=== PATIENT | female | born 1970 | race Caucasian/White ===

== ENCOUNTER 2022-12-28 11:15 | Outpatient (AMB) | payer OTHER, SELFPAY ==
--- NOTE | 2022-12-28 11:31 | A.SPINEOV_ITS ---
Intake Intake Visit Reasons: est pt lower back pain/leg cramps Intake Note: Ms. Mtz is here today c/o low back pain and leg cramps. 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 She is a patient who has had anterior cervical fusion as well as L4-5 minimally invasive lumbar fusion by Dr. Oviedo. The last surgery she had in her lumbar spine was a few years ago when she did fairly well after that. She did start to develop a little bit of discomfort in her legs with walking last year. She underwent an MRI and it showed mild to moderate stenosis at L2-3. We encouraged her just to continue with activity and continue to monitor things. Unfortunately over the last year so the symptoms have gotten progressively worse. Now when she is standing and walking for any length of time she is starting to get severe cramping and pain which forces her to sit down. It sounds to me like she is progressing with the stenosis. I would like to get a new lumbar MRI to evaluate things. We will coordinate this with the [facility] because she will need her shunt reprogrammed after the MRI. We will do the MRI at the [facility]. She will see us back after the MRI is completed. She is aware that she will need to bring her disc. Total amount of time spent in this visit was 20 minutes in discussion of symptoms, previous lumbar MRI imaging results and subsequent plan of care Byron Oviedo MD,PhD [facility] Orders: Orders MR lumbar spine wo con Today M48.061 - Spinal stenosis, lumbar region without neurogenic claudication Coding Level of Care Code Est Pt Level 3 (61324) Diagnoses Lumbar stenosis M48.061
== END 2022-12-28 12:02 | disposition home or self-care (01) ==
PROVIDERS: PCP Radiology Diagnostic Radiology; Visit Provider Physician Assistant
DX: M48.061 Spinal stenosis, lumbar region without neurogenic claudication (principal)
CPT/HCPCS: 99213

== ENCOUNTER → 2022-12-28 11:15 | Outpatient (BNVA) | payer OTHER, SELFPAY | PROVIDERS: PCP Radiology Diagnostic Radiology; Visit Provider Physician Assistant ==

== ENCOUNTER 2023-02-01 14:59 | Outpatient (AMB) | payer OTHER, SELFPAY ==
--- NOTE | 2023-02-01 15:45 | MHC.OFFVIS ---
Intake Intake Visit Reasons: F/u MRI Assessment & Plan Assessment & Plan (1) Lumbar stenosis: Code(s): M48.061 - Spinal stenosis, lumbar region without neurogenic claudication Plan Mrs Soares returns to the office today for evaluation. Please see my previous note but this patient had an L4-5 minimally invasive oblique lumbar interbody fusion done a few years ago with excellent success. She developed progressively did claudicating symptoms in her legs going down into her calves with cramping which goes away when she sits down. We did a follow-up MRI study just to evaluate some low-grade stenosis that we had seen after surgery a year ago or so. Unfortunately her new MRI done at the [facility] shows that she has developed severe stenosis at L2-3 and moderate to severe stenosis at L3-4. I reviewed the patient's imaging with her at length, and told her that I suspect Dr. Oviedo would recommend extension of fusion to both of these levels. I will speak with him and reviewed the situation and call her with the updated plan. Total amount of time spent in this visit was 20 minutes in discussion of symptoms, lumbar MRI imaging results and subsequent plan of care Byron Oviedo MD,PhD [facility] Coding Level of Care Code Est Pt Level 3 (36731) Diagnoses Lumbar stenosis M48.061
== END 2023-02-01 15:44 | disposition home or self-care (01) ==
PROVIDERS: PCP Radiology Diagnostic Radiology; Visit Provider Physician Assistant
DX: M48.061 Spinal stenosis, lumbar region without neurogenic claudication (principal)
CPT/HCPCS: 99213

== ENCOUNTER → 2023-02-01 14:59 | Outpatient (BNVA) | payer OTHER, SELFPAY | PROVIDERS: PCP Radiology Diagnostic Radiology; Visit Provider Physician Assistant ==

== ENCOUNTER 2023-08-22 10:57 | Day surgery (SDC) | payer OTHER, SELFPAY ==
[2023-04-18 12:31] VITALS: BP 136/85; PULSE 87; RESP 18; O2SAT 97; BMI 34.2
--- NOTE | 2023-04-18 13:01 | P.CONAN_ITS ---
HPI - Anesthesia Eval Consult details Narrative: rescheduled? 52yo F for L2-3,L3-4 Unilateral approach for bilateral decompression, 05/02/23 No recent illness. No CP/SOB with walking on flat surface. Activity limited to pain/OA SLE. Dx ~2009. Previously on plaquinel, but stopped d/t opthalmic side effects. No rx for two years. Thyroid. On levothyroxine. Followed by PCP GERD. Controlled with PPI. [employer] shunt. Intracranial htn. Followed by [facility] neuro. Last seen 01/23/23. Settings on paper record. Pt requests sparing use of opiates as much as possible. PMFSH Active Problems Active Problems: All Active Problems (Updated 04/18/23 @ 12:20 by Nikole Helm RN) Lumbar stenosis (Acute) Past Medical History Medical History (Updated 05/01/23 @ 06:57 by Maria Eugenia Lawton RN) Pseudotumor cerebri History of trigger finger Hx of septic shock Arthritis Antiphospholipid antibody positive Diarrhea Hiatal hernia Numbness HTN (hypertension) Tendinopathy of right gluteus medius Grief reaction Urinary frequency Colitis Elevated glucose Sensorineural hearing loss Raynaud disease Partial hamstring tear Postmenopausal Nail discoloration Labral tear of right hip joint Fluttering sensation of heart Fall Systemic lupus erythematosus Cervical spinal cord compression Vulvar atrophy Benign intracranial hypertension Greater trochanteric bursitis of right hip Cervical radiculopathy Chondromalacia of right patella Shoulder pain Presbyopia Myopia Asthenopia of both eyes Antiphospholipid antibody syndrome Incontinence in female Back pain Dry eye syndrome Thoracic spondylosis Peripheral neuropathy Migraine Depression Polyarthritis History of headache GERD (gastroesophageal reflux disease) Tinnitus Herpes zoster Papilledema Osteopenia Hx of abnormal cervical Pap smear History of nicotine dependence Iron deficiency anemia History of compression fracture of spine Prediabetes Obesity Mild cervical dysplasia Thyroid disease Generalized hyperhidrosis Epigastric pain Adjustment disorder with mixed anxiety and depressed mood Family History Family history of problems with anesthesia: Yes (Mom - ponv) Surgical History Surgical History (Updated 04/18/23 @ 12:21 by Nikole Helm RN) History of surgery on arm Hx of hand surgery Hx of section Hx of cervical spine surgery H/O colonoscopy [employer] (ventriculoperitoneal) shunt status History of Problems with Anesthesia: Yes (PONV) Social History Social History Are you a primary acute care physical therapist to a significant other at home: Yes (mother) Do you presently have visiting nurse or other home services: Yes (nursing) Patient Tobacco Use Status: Former Tobacco user Tobacco use type: Cigarette Use of substances other than those prescribed or required for medical reasons: No Have you been hit, kicked, punched, or otherwise hurt by someone within the past year? If so, by whom?: No Advance Directives: No Advance Directives Information Provided: No Advance Directives on File: No Recently lost weight without trying: No Eating poorly because of decreased appetite: No Nutrition Risks: No Nutritional Risk Patient : No : No Poor oral hygiene: No Meds Allergies Allergy/AdvReac Type Severity Reaction Status Date / Time codeine Allergy Rash Verified 04/18/23 12:22 hydrocodone [From Vicodin] Allergy Hallucinati Verified 04/18/23 12:22 ons hydromorphone [From Dilaudid] Allergy Swelling Verified 04/18/23 12:22 morphine Allergy Rash Verified 04/18/23 12:22 Home Medications Medication Instructions Recorded Confirmed Last Taken Type acetaminophen 500 mg tablet 1,000 mg PO Q8H PRN mild pain 04/18/23 04/18/23 Unknown History amlodipine 5 mg tablet 5 mg PO DAILY 04/18/23 04/18/23 Unknown History calcium carbonate 600 mg-vitamin 1 tab PO DAILY 04/18/23 04/18/23 Unknown History D3 5 mcg (200 unit) tablet duloxetine 60 mg capsule,delayed 60 mg PO DAILY 04/18/23 04/18/23 Unknown Hist ory release fluticasone propionate 50 1 spray intranasal DAILY PRN 04/18/23 04/18/23 Unknown History mcg/actuation nasal Allergy Symptoms spray,suspension levothyroxine 100 mcg tablet 100 mcg PO DAILY 04/18/23 04/18/23 Unknown History minocycline 50 mg capsule 50 mg PO DAILY 04/18/23 04/18/23 Unknown History omeprazole 20 mg capsule,delayed 40 mg PO DAILY 04/18/23 04/18/23 Unknown History release Exam Height,Weight and Vital Signs: Height 5 ft 4 in Weight 90.265 kg Last Vital Signs Pulse 87 04/18/23 12:31 Resp 18 04/18/23 12:31 BP 136/85 04/18/23 12:31 Pulse Ox 97 04/18/23 12:31 O2 Del Method Room Air 04/18/23 12:31 Pertinent Lab Results Pertinent Lab Results: CBC and BMP 08/2022 from outside facility WNL. Narrative Narrative: EKG 06/2022 NSR @ 85 Airway TM Dist: >3cm Neck ROM: Limited Loose/Missing/Broken Teeth: No Heart: RRR Lungs: CTAB Assessment and Plan Assessment Anesthesia Assessment: Anesthesia Plan Discussed and PAT Visit Final Anesthetic Review Family History of Problems with Anesthesia: Yes (Mom - ponv) History of Problems with Anesthesia: Yes (PONV)
[2023-08-07 09:24] VITALS: BMI 33.6
--- NOTE | 2023-08-09 11:00 | HO.ANESPROP2 ---
Documented by User: Antoinette Killian NP 08/09/23 11:04 HPI - Anesthesia Eval Consult details Narrative: 53yo F for L2-3,L3-4 Unilateral approach for bilateral decompression, 08/22/23 Stable at 07/2023 PCP visit From 04/2023 PAT: No recent illness. No CP/SOB with walking on flat surface. Activity limited to pain/OA SLE. Dx ~2009. Previously on plaquinel, but stopped d/t opthalmic side effects. No rx for two years. Thyroid. On levothyroxine. Followed by PCP GERD. Controlled with PPI. [employer] shunt. Intracranial htn. Followed by [facility] neuro. Last seen 01/23/23, stable. Settings on paper record. Pt requests sparing use of opiates as much as possible. PMFSH Active Problems Active Problems: All Active Problems Lumbar stenosis (Acute) Past Medical History Medical History Pseudotumor cerebri History of trigger finger Hx of septic shock Arthritis Antiphospholipid antibody positive Diarrhea Hiatal hernia Numbness HTN (hypertension) Tendinopathy of right gluteus medius Grief reaction Urinary frequency Colitis Elevated glucose Sensorineural hearing loss Raynaud disease Partial hamstring tear Postmenopausal Nail discoloration Labral tear of right hip joint Fluttering sensation of heart Fall Systemic lupus erythematosus Cervical spinal cord compression Vulvar atrophy Benign intracranial hypertension Greater trochanteric bursitis of right hip Cervical radiculopathy Chondromalacia of right patella Shoulder pain Presbyopia Myopia Asthenopia of both eyes Antiphospholipid antibody syndrome Incontinence in female Back pain Dry eye syndrome Thoracic spondylosis Peripheral neuropathy Migraine Depression Polyarthritis History of headache GERD (gastroesophageal reflux disease) Tinnitus Herpes zoster Papilledema Osteopenia Hx of abnormal cervical Pap smear History of nicotine dependence Iron deficiency anemia History of compression fracture of spine Prediabetes Obesity Mild cervical dysplasia Thyroid disease Generalized hyperhidrosis Epigastric pain Adjustment disorder with mixed anxiety and depressed mood Family History Family history of problems with anesthesia: Yes (Mom - ponv) Surgical History Surgical History History of surgery on arm Hx of hand surgery Hx of section Hx of cervical spine surgery H/O colonoscopy [employer] (ventriculoperitoneal) shunt status History of Problems with Anesthesia: Yes (PONV) Social History Social History Are you a primary nurse care manager to a significant other at home: Yes (to her Mother) Do you presently have visiting nurse or other home services: Yes (nursing) Patient Tobacco Use Status: Former Tobacco user Tobacco use type: Cigarette Use of substances other than those prescribed or required for medical reasons: No Have you been hit, kicked, punched, or otherwise hurt by someone within the past year? If so, by whom?: No Are you DNR?: No Advance Directives: No Advance Directives Information Provided: Yes Advance Directives on File: No Recently lost weight without trying: No Eating poorly because of decreased appetite: No Nutrition Risks: No Nutritional Risk Patient : No : No Poor oral hygiene: No Meds Allergies Allergy/AdvReac Type Severity Reaction Status Date / Time codeine Allergy Rash Verified 04/18/23 12:22 hydrocodone [From Vicodin] Allergy Hallucinati Verified 04/18/23 12:22 ons hydromorphone [From Dilaudid] Allergy Swelling Verified 04/18/23 12:22 morphine Allergy Rash Verified 04/18/23 12:22 Home Medications ?Medication ?Instructions ?Recorded ?Confirmed ?Last Taken ?Type acetaminophen 500 mg tablet 1,000 mg PO Q8H PRN mild pain 04/18/23 04/18/23 Unknown History amlodipine 5 mg tablet 5 mg PO DAILY 04/18/23 04/18/23 Unknown History calcium carbonate 600 mg-vitamin 1 tab PO DAILY 04/18/23 04/18/23 Unknown History D3 5 mcg (200 unit) tablet duloxetine 60 mg capsule,delayed 60 mg PO DAILY 04/18/23 04/18/23 Unknown History release fluticasone propionate 50 1 spray intranasal DAILY PRN 04/18/23 04/18/23 Unknown History mcg/actuation nasal Allergy Symptoms spray,suspension levothyroxine 100 mcg tablet 100 mcg PO DAILY 04/18/23 04/18/23 Unknown History minocycline 50 mg capsule 50 mg PO DAILY 04/18/23 04/18/23 Unknown History omeprazole 20 mg capsule,delayed 40 mg PO DAILY 04/18/23 04/18/23 Unknown History release Exam Height,Weight and Vital Signs: Height 5 ft 4 in Weight 88.904 kg Last Vital Signs Pulse 87 04/18/23 12:31 Resp 18 04/18/23 12:31 BP 136/85 04/18/23 12:31 Pulse Ox 97 04/18/23 12:31 O2 Del Method Room Air 04/18/23 12:31 Pertinent Lab Results Pertinent Lab Results: CBC and CMP 07/2023 WNL Narrative Narrative: EKG 06/2022 NSR @ 85 Airway TM Dist: >3cm Neck ROM: Limited Loose/Missing/Broken Teeth: No Heart: RRR Lungs: CTAB Assessment and Plan Final Anesthetic Review Family History of Problems with Anesthesia: Yes (Mom - ponv) History of Problems with Anesthesia: Yes (PONV) Documented by User: Taina Christensen MD 08/22/23 11:17 [facility] Past Medical History Medical History Pseudotumor cerebri History of trigger finger Hx of septic shock Arthritis Antiphospholipid antibody positive Diarrhea Hiatal hernia Numbness HTN (hypertension) Tendinopathy of right gluteus medius Grief reaction Urinary frequency Colitis Elevated glucose Sensorineural hearing loss Raynaud disease Partial hamstring tear Postmenopausal Nail discoloration Labral tear of right hip joint Fluttering sensation of heart Fall Systemic lupus erythematosus Cervical spinal cord compression Vulvar atrophy Benign intracranial hypertension Greater trochanteric bursitis of right hip Cervical radiculopathy Chondromalacia of right patella Shoulder pain Presbyopia Myopia Asthenopia of both eyes Antiphospholipid antibody syndrome Incontinence in female Back pain Dry eye syndrome Thoracic spondylosis Peripheral neuropathy Migraine Depression Polyarthritis History of headache GERD (gastroesophageal reflux disease) Tinnitus Herpes zoster Papilledema Osteopenia Hx of abnormal cervical Pap smear History of nicotine dependence Iron deficiency anemia History of compression fracture of spine Prediabetes Obesity Mild cervical dysplasia Thyroid disease Generalized hyperhidrosis Epigastric pain Adjustment disorder with mixed anxiety and depressed mood Surgical History Surgical History History of surgery on arm Hx of hand surgery Hx of section Hx of cervical spine surgery H/O colonoscopy [employer] (ventriculoperitoneal) shunt status Social History Social History Are you a primary nurse care manager to a significant other at home: Yes (to her Mother) Do you presently have visiting nurse or other home services: Yes (nursing) Patient Tobacco Use Status: Former Tobacco user Tobacco use type: Cigarette Use of substances other than those prescribed or required for medical reasons: No Have you been hit, kicked, punched, or otherwise hurt by someone within the past year? If so, by whom?: No Are you DNR?: No Advance Directives: No Advance Directives Information Provided: Yes Advance Directives on File: No Recently lost weight without trying: No Eating poorly because of decreased appetite: No Nutrition Risks: No Nutritional Risk Patient : No : No Poor oral hygiene: No Meds Allergies Allergy/AdvReac Type Severity Reaction Status Date / Time codeine Allergy Rash Verified 04/18/23 12:22 hydrocodone [From Vicodin] Allergy Hallucinati Verified 04/18/23 12:22 ons hydromorphone [From Dilaudid] Allergy Swelling Verified 04/18/23 12:22 morphine Allergy Rash Verified 04/18/23 12:22 Home Medications ?Medication ?Instructions ?Recorded ?Confirmed ?Last Taken ?Type acetaminophen 500 mg tablet 1,000 mg PO Q8H PRN mild pain 04/18/23 04/18/23 Unknown History amlodipine 5 mg tablet 5 mg PO DAILY 04/18/23 04/18/23 Unknown History calcium carbonate 600 mg-vitamin 1 tab PO DAILY 04/18/23 04/18/23 Unknown History D3 5 mcg (200 unit) tablet duloxetine 60 mg capsule,delayed 60 mg PO DAILY 04/18/23 04/18/23 Unknown History release fluticasone propionate 50 1 spray intranasal DAILY PRN 04/18/23 04/18/23 Unknown History mcg/actuation nasal Allergy Symptoms spray,suspension levothyroxine 100 mcg tablet 100 mcg PO DAILY 04/18/23 04/18/23 Unknown History minocycline 50 mg capsule 50 mg PO DAILY 04/18/23 04/18/23 Unknown History omeprazole 20 mg capsule,delayed 40 mg PO DAILY 04/18/23 04/18/23 Unknown History release Exam Airway Mallampati Class: II Assessment and Plan Assessment Anesthesia Assessment: Anesthesia Plan Discussed and Chart Reviewed Final Anesthetic Review ASA Class: III (SLE) Final Preanesthetic Review: No Changes in Pt Med Stat, Meds/Allgs Chart Reviewed, Consent Obtained/Reviewed and Anes Risks/Benef Reviewed Patient Risk: Intermediate Procedure Risk: Intermediate Anesthetic Plan Anesthetic Plan: GA Disposition: Standard PACU
[2023-08-22] VITALS (8 sets, daily range): BP systolic 124–156; BP diastolic 83–100; PULSE 87–100; RESP 15–16; TEMP 36.4–36.6; O2SAT 94–100
--- NOTE | ~2023-08-22 | FL_ITS ---
EXAMINATION: XR FLUOROSCOPY WITH IMAGES CLINICAL INFORMATION: L2-L3, L3-L4 unilateral left approach decompression. COMPARISON: None available. TECHNIQUE: Fluoroscopy Supervised By: Dr. Humberto Oviedo. Fluoroscopy Time: 2.7 seconds. Cumulative Dose: 1.9091 mGy. DAP: 0.7043 Gycm2. Images: 6. FINDINGS: Intraoperative fluoroscopy and spot films were performed during a procedure in the OR. There is posterior fixation with pedicular screws seen at L4-L5 with an interbody device. Surgical instruments are noted at the back of L2 and L3. Please see Dr. Humberto Oviedo's report for complete details. FL/FL guidance in OR IMPRESSION: Intraoperative fluoroscopy and spot films were obtained. Please see Dr. Humberto Oviedo's report for complete details.
--- NOTE | 2023-08-22 07:06 | P.HPSUR_ITS ---
Pre-Procedural Eval Section A - 24 Hr Update-Section A only Date of Service: 08/22/23 The patient is an INPATIENT: No Changes since office visit: No Cold of Flu in the past 2 weeks, No New Medical Problems, No Changes in Medication and No Patient answered all questions The patient has been examined within 24 hours of the surgical procedure. The History & Physical has been completed within 30 days and I have reviewed it.: No Section B - Complete if H&P > 30 days Chief Complaint: Spinal stenosis, lumbar region without neurogenic Allergies: Allergies Allergy/AdvReac Type Severity Reaction Status Date / Time codeine Allergy Rash Verified 04/18/23 12:22 hydrocodone [From Vicodin] Allergy Hallucinati Verified 04/18/23 12:22 ons hydromorphone [From Dilaudid] Allergy Swelling Verified 04/18/23 12:22 morphine Allergy Rash Verified 04/18/23 12:22 Review of Systems Sugical H&P ROS: Negative: Constitution, Cardiovascular, Respiratory, Neurological, Psychiatric, Hem-Onc, Allergic/Immunologic, Gastrointestinal, Genitourinary, Musculoskeletal, Integumentary, Endocrine and Eyes/Ears/Nose/Thro at Exam Surgical H&P Exam: Not Evaluated: HEENT, Not Evaluated: Heart, Not Evaluated: Lungs, Not Evaluated: Extremities, Not Evaluated: Abdomen, Not Evaluated: Skin and Not Evaluated: Neurological Plan Diagnosis/Plan: Unchanged unilateral approach for decompression L2-3, L3-4 Time Spent With Patient Time: Total time managing care of this patient today __5__ minutes.
[2023-08-22] MEDS: Gabapentin 300 MG CAPSULE PO (11:32)
[2023-08-22] MEDS: methocarbamoL 750 MG TABLET PO (11:32)
[2023-08-22] MEDS: Lactated Ringers 1,000 ML 100 ML IVCONT (11:42)
--- NOTE | 2023-08-22 14:40 | P.DS_ITS ---
DS: Providers Provider Date of Service: 08/22/23 Primary care physician: Jessicatapaula Physician DS: Summary Time Attestation Discharge Coordination Time (in mins): 15 Quality: Safe Use of Opioids Does Pt have an Active Cancer Diagnosis on the Problem List?: No Quality: Stroke Does the patient have a stroke diagnosis?: No Physical Exam Vital Signs: Vital Signs: Last Vital Signs Temp 97.5 F 08/22/23 11:44 Pulse 87 08/22/23 11:44 Resp 15 08/22/23 11:44 BP 151/96 H 08/22/23 11:47 Pulse Ox 95 08/22/23 11:44 O2 Del Method Room Air 08/22/23 11:44 BMI result Body Mass Index 33.6 Discharge Plan Discharge Patient Disposition: Home, Self-Care Referrals: Physician,Nonstaff [Primary Care Provider] - 1 Week Discharge Medications: New oxycodone 5 mg tablet 5 mg PO Q6H PRN (Reason: severe pain (scale score 7-10)) Qty: 30 0RF Rx Instructions: Partial Fill upon patient request. Continued ibuprofen 800 mg tablet 800 mg PO Q8H Qty: 60 3RF amlodipine 5 mg tablet 5 mg PO DAILY acetaminophen 500 mg tablet 1,000 mg PO Q8H PRN (Reason: mild pain) levothyroxine 100 mcg tablet 100 mcg PO DAILY minocycline 50 mg capsule 50 mg PO DAILY omeprazole 20 mg capsule,delayed release(DR/EC) 40 mg PO DAILY fluticasone propionate 50 mcg/actuation spray,suspension 1 spray intranasal DAILY PRN (Reason: Allergy Symptoms) duloxetine 60 mg capsule,delayed release(DR/EC) 60 mg PO DAILY calcium carbonate-vitamin D3 600 mg-5 mcg (200 unit) Tablet 1 tab PO DAILY Discharge Orders: Discharge Order (Routine); Ordered 08/22/23 Ordered By: Anton Reyes Diet: Advance to usual diet Activity on Discharge: As tolerated Activity Restrictions/Additional Instructions: After your spinal surgery we ask you to observe the following restrictions/guidelines: Activity: It is normal to feel some discomfort as you increase your activity, but that will improve with time. We ask you avoid heavy lifting or acitivities that cause pain. As a general rule, 8lbs is a safe limit for lifting right after surgery. Walk as much as you feel comfortable but not to exhaustion. You will feel extra tired the first few days after surgery. Stay well hydrated. It is OK to walk up and down stairs You may return to driving when you are off narcotics (such as vicodin, oxycodone, dilaudid, etc), and you are back to normal functional capacity. If y ou have any concerns please check with office before driving. Return to work is specific to each patient and each surgery, so please speak with your doctor/PA at first follow up. Please bring paperwork such as FMLA at that time if you need it filled out. Medications: We will give you a short supply of narcotics after surgery (usually one weeks worth). If you need more please call the office but do not use more than prescribed. You will need to give our office 48 hours notice if you need narcotics refilled and we do not fill narcotics on weekends or evenings. If you are on a narcotic, it is a good idea to take a stool softener such as colace or senna to avoid constipation If you take blood thinner such as aspirin, Plavix, Coumadin, Effient, Eliquis etc for conditions such as Afib, DVT, Pulmonary embolus, coronary disease, stents etc please speak with your surgeon about specific details as to when you can resume these medications. You can resume NSAIDs on post op day 1 (eg: Motrin, Naproxen, etc). Follow up: Please call the office, , after surgery to arrange a 3 week follow up for wound check. Wound Care: You may remove your dressing on the first day after surgery. ?You may ?leave open to air. Please do not remove the steri strips underneath. they will fall off on their own in one week. IT IS NORMAL FOR THE WOUND TO OOZE OR BE BLOODY FOR A FEW DAYS AFTER SURGERY. ?IF THIS HAPPENS JUST PLACE NEW DRESSING OVER IT TO AVOID STAINING CLOTHES. You may shower on post op day # 1 We ask that you do not let the water soak the wound. If it does get wet, just towel dry lightly. Please do not scrub your incision or place any type of chemical/ointment on the wound. No tub baths, pools or jacuzzis for one month. If you have any leaking or redness from your wound, or fevers, please call the office. Print Language: Greenlandic
--- NOTE | 2023-08-22 14:49 | W.PM.OPN ---
Operative Note Operative Note Date of Service: 08/22/23 Narrative: Preoperative Diagnosis: L2-3, L3-4 spinal stenosis/lateral recess stenosis/neural foraminal stenosis Operation: L2-3, L3-4 Laminotomy, Partial facetectomy and foraminotomy with use of microscope Consent Informed Consent was obtained for this operation. I have explained the nature, purpose and benefits of the operation. I have discussed the risks and benefit of the operation including possible complications or adverse events with patient/family. Alternative(s) were discussed with the patient with their relative benefits and risks as well as the consequences of not accepting the operation were included in obtaining consent. Surgeon: KATELYNN ELLIS MD, PHD Procedure Assisted By: Anton Marquez Description of Procedure This patient is suffering from neurogenic claudication due to L2-3 and L4-5 spinal stenosis. She had a previous L4-5 fusion done. There are some signs of instability at the other levels so we decided to do a unilateral approach to preserve as much stability and in an attempt to avoid more fusions in the future.. The patient was offered a decompression. The procedure complications were explained. The patient was consented. The patient was brought to the operating room and endotracheally intubated. The patient was turned in prone position on the Nish frame. Prep and drape was done followed by timeout. The Physician automotive service assistant provided access. A mid lumbar incision was made followed by release of the paravertebral muscle on the left side to expose the L2-3 and L3-4 laminae and facet joints. An intraoperative x-ray was obtained to confirm the correct level. The microscope was brought in. I took over the procedure. The high-speed drill was used to do a left L2-3 laminotomy until flavum ligament was reached. A #2 Kerrison was used to expand the laminotomy near flush to the pedicles and to include a partial facetectomy. The flavum ligament was opened and resected with a #3 Kerrison to decompress the underlying thecal sac. The flavum ligament was removed to decompress the lateral recess and the exiting L3 nerve root. A long nerve hook could be easily passed along the medial side of the pedicles as a sign of adequate decompression. The patient was turned contralaterally. The spinous process was undercut in preparation for the contralateral decompression. The flavum ligament was resected towards the contralateral side and a partial facetectomy was done to finalize the decompression of the L2-3 level. Then attention was turned to the L3-4 level. Again a left-sided L3-4 hemilaminotomy was done followed by decompression of the thecal sac and exiting L4 nerve root in the lateral recess. Then the patient was turned contralaterally. The spinous process was undercut and the contralateral side was decompressed accordingly. The microscope was removed. Hemostasis was done. The physician automotive service assistant close the Incision in 2 layers. Steri-Strips were used to approximate incision. An OpSite with Tegaderm was used to cover the incision. All sponge needle counts were correct. Patient was extubated and transported in stable is to recovery room. Anesthesia: General Estimated Blood Loss (ml): 35 Complications: None Duration of Surgery: 60 Minutes Postoperative Plan: Discharge to home
== END 2023-08-22 15:59 | disposition home or self-care (01) ==
PROVIDERS: Visit Provider Neurological Surgery
PROC: (CPT 63047; principal; 2023-08-22 14:50)
DX: M48.061 Spinal stenosis, lumbar region without neurogenic claudication (principal); M32.9 Systemic lupus erythematosus, unspecified; M19.90 Unspecified osteoarthritis, unspecified site; E07.9 Disorder of thyroid, unspecified; I10 Essential (primary) hypertension; I73.00 Raynaud's syndrome without gangrene; R73.03 Prediabetes; G93.2 Benign intracranial hypertension; Z98.2 Presence of cerebrospinal fluid drainage device; D50.9 Iron deficiency anemia, unspecified; D68.61 Antiphospholipid syndrome; F43.23 Adjustment disorder with mixed anxiety and depressed mood; Z79.899 Other long term (current) drug therapy; Z88.5 Allergy status to narcotic agent; Z98.890 Other specified postprocedural states; Z87.891 Personal history of nicotine dependence
CPT/HCPCS: 63047; 63048; J0131; J0690; J1100; J1885; J2250; J2405; J2704; J3010

== ENCOUNTER → 2023-08-22 10:57 | Outpatient (BNV) | payer OTHER, SELFPAY | PROVIDERS: Visit Provider Physician Assistant | DX: M48.061 Spinal stenosis, lumbar region without neurogenic claudication (principal) | CPT/HCPCS: 63047; 63048; 99499 ==

== ENCOUNTER 2023-08-26 13:50 | Outpatient (AMB) | payer OTHER, SELFPAY ==
--- NOTE | 2023-08-26 14:15 | HO.SPINEOV ---
Intake Visit Reasons: incision check Intake Note: Ms. Soares is here today for an incision check. Production Director Required: No Allergies codeine Allergy (Verified 08/26/23 14:16) Rash hydrocodone [From Vicodin] Allergy (Verified 08/26/23 14:16) Hallucinations hydromorphone [From Dilaudid] Allergy (Verified 08/26/23 14:16) Swelling morphine Allergy (Verified 08/26/23 14:16) Rash Assessment & Plan Assessment & Plan (1) Status post lumbar spine surgery for decompression of spinal cord: Code(s): Z98.890 - Other specified postprocedural states Category: Medical Plan Traci comes in today for a wound check after having a L2-3, L3-4 Laminotomy, Partial facetectomy and foraminotomy completed on 08/21. She called the office this morning stating she had some mild blistering around her incision site which she attributed to the adhesive bandages that were used overlying her incision after closure. She reports continuation of preoperative symptoms, but was encouraged that this is likely due to how recent her surgery was, and postoperative inflammation. She also is neglecting to take oxycodone as she does not like taking narcotic pain medication. I inspected these blisters, which appeared small it to be grouped in a linear fashion around the incision site. I would estimate their size to be roughly equivalent to the tip of a pen. The incision itself appears well approximated, and closed. They do not appear to be crusting or bursting, but the patient reports some of them have burst at home, producing a clear fluid. I cleanse the area and put a layer of Exofin over the incision site. The patient states she has had this used before and tolerated it well without any reaction. I would like to see her again for regular follow-up at her 1st postoperative visit. Anton Oviedo MD,PhD [facility] Coding Level of Care Code Global (16667) Diagnoses Status post lumbar spine surgery for decompression of spinal cord Z98.890
== END 2023-08-26 14:33 | disposition home or self-care (01) ==
PROVIDERS: Visit Provider Physician Assistant
DX: Z98.890 Other specified postprocedural states (principal)
CPT/HCPCS: 99024

== ENCOUNTER → 2023-08-26 13:50 | Outpatient (BNVA) | payer OTHER, SELFPAY | PROVIDERS: Visit Provider Physician Assistant ==

== ENCOUNTER 2023-09-03 14:02 | Outpatient (AMB) | payer OTHER, SELFPAY ==
--- NOTE | 2023-09-03 14:15 | HO.SPINEOV ---
Intake Visit Reasons: follow up after antibiotic reaction Intake Note: Ms. Soares is here today to F/u after antibiotic reaction. Suspension Cord Tier Required: No Allergies codeine Allergy (Verified 08/26/23 14:16) Rash hydrocodone [From Vicodin] Allergy (Verified 08/26/23 14:16) Hallucinations hydromorphone [From Dilaudid] Allergy (Verified 08/26/23 14:16) Swelling morphine Allergy (Verified 08/26/23 14:16) Rash Assessment & Plan Assessment & Plan (1) Status post lumbar spine surgery for decompression of spinal cord: Code(s): Z98.890 - Other specified postprocedural states Category: Surgical Plan Traci is a pleasant 53 y/o female who comes in today for a subsequent follow-up visit after being previously seen postoperatively for a dermatological skin eruptions as a result of the adhesive used during closure of her wound. Today, she reports that her body has been itchy, but overall she is doing better in terms of her actual incision. On inspection it appears as though the blistering around the incision site has receded. The incision appears well approximated with only mild scabbing. I cleansed the incision site with isopropyl alcohol and placed a layer of Exofin over the top of it to seal it from the surrounding skin. I also sent in a Medrol Dosepak for the patient to help with her acute dermatological reaction, as she is now itching in several places. I would like to see the patient again in 2 weeks for a subsequent follow-up visit assuming that she continues to heal well there are no other concerns/issues. Of course who can see her sooner if she feels as though she needs to be seen. Anton Oviedo MD,PhD [facility] Medications: New methylprednisolone PO PER PKG DIR 21 ea 0RF Coding Level of Care Code Global (42776) Diagnoses Status post lumbar spine surgery for decompression of spinal cord Z98.890
== END 2023-09-03 14:24 | disposition home or self-care (01) ==
PROVIDERS: Visit Provider Physician Assistant
DX: Z98.890 Other specified postprocedural states (principal)
CPT/HCPCS: 99024

== ENCOUNTER → 2023-09-03 14:02 | Outpatient (BNVA) | payer OTHER, SELFPAY | PROVIDERS: Visit Provider Physician Assistant ==

== ENCOUNTER 2023-09-19 10:52 | Outpatient (AMB) | payer OTHER, SELFPAY ==
--- NOTE | 2023-09-19 10:58 | HO.SPINEOV ---
Intake Visit Reasons: 1st post op Intake Note: Ms. Soares is here today for her 1st post-op. Pay Station Department Manager Required: No Allergies codeine Allergy (Verified 08/26/23 14:16) Rash hydrocodone [From Vicodin] Allergy (Verified 08/26/23 14:16) Hallucinations hydromorphone [From Dilaudid] Allergy (Verified 08/26/23 14:16) Swelling morphine Allergy (Verified 08/26/23 14:16) Rash Assessment & Plan Assessment & Plan (1) Status post lumbar spine surgery for decompression of spinal cord: Code(s): Z98.890 - Other specified postprocedural states Category: Surgical Plan Procedure: L2-3, L3-4 Laminotomy, Partial facetectomy and foraminotomy Traci comes in today for a subsequent postoperative visit after previously being seen for a dermatological eruption that it occurred around her incision site due to an allergy to adhesives. She tolerated the course of steroids well, and completed the antibiotic regimen. She reports resolution of the rash that she previously had around the incision site. In addition to this she recently reports having a facial rash/eruption which was treated with a multi day regimen of prednisone by her environmental science professor. We discussed the postoperative healing course, and thankfully Traci reports that the majority of her bilateral lower extremity cramping has resolved. She does still have quite a bit of difficulty with pain upon awakening in the morning, but feels as though it lessens throughout the day. No new neurological deficits. Patient is able to ambulate well, rises from a seated position without difficulty. Incision site is closed, well healing, with no signs of drainage. It is not yet fully scarred over. We will follow-up with the patient in 6 weeks for a subsequent postoperative visit. For the meantime she was strongly encouraged to remain out of her pool and advised to not submerge her incision site and water. Anton Oviedo MD,PhD [facility] Coding Level of Care Code Global (51859) Diagnoses Status post lumbar spine surgery for decompression of spinal cord Z98.890
== END 2023-09-19 11:13 | disposition home or self-care (01) ==
PROVIDERS: Visit Provider Physician Assistant
DX: Z98.890 Other specified postprocedural states (principal)
CPT/HCPCS: 99024

== ENCOUNTER → 2023-09-19 10:52 | Outpatient (BNVA) | payer OTHER, SELFPAY | PROVIDERS: Visit Provider Physician Assistant ==

== ENCOUNTER 2023-11-04 14:46 | Outpatient (AMB) | payer OTHER, SELFPAY ==
--- NOTE | 2023-11-04 15:33 | HO.SPINEOV ---
Intake Visit Reasons: 2nd post op Intake Note: Ms. Soares is here today for her 2nd post-op visit. Care Information Associate Required: No Allergies codeine Allergy (Verified 08/26/23 14:16) Rash hydrocodone [From Vicodin] Allergy (Verified 08/26/23 14:16) Hallucinations hydromorphone [From Dilaudid] Allergy (Verified 08/26/23 14:16) Swelling morphine Allergy (Verified 08/26/23 14:16) Rash Assessment & Plan Assessment & Plan (1) Lumbar stenosis: Code(s): M48.061 - Spinal stenosis, lumbar region without neurogenic claudication Category: Medical Plan Mrs Soares is here for 2 month follow up. She is doing well, a lot of the cramping she was getting in her legs and around the front of her abdomen are gone. She is very happy with the results from surgery. We discussed activity guidelines, restrictions and expectations after lumbar decompression. The rash she had on her back is gone her wounds are well healed. She can follow up with us on an as-needed basis. Byron Oviedo MD, PhD [facility] Coding Level of Care Code Global (74650) Diagnoses Lumbar stenosis M48.061
== END 2023-11-04 15:51 | disposition home or self-care (01) ==
PROVIDERS: Visit Provider Physician Assistant
DX: M48.061 Spinal stenosis, lumbar region without neurogenic claudication (principal)
CPT/HCPCS: 99024

== ENCOUNTER → 2023-11-04 14:46 | Outpatient (BNVA) | payer OTHER, SELFPAY | PROVIDERS: Visit Provider Physician Assistant ==

== ENCOUNTER 2024-08-24 13:21 | Outpatient (AMB) | payer OTHER, SELFPAY ==
--- OUTSIDE RECORDS SUMMARY | 2024-08-24 13:24 | XMS_ITS | Clinical Summary ---
Author Organization [facility] Address [address] [place] [address] Care Team Providers Care Ore Crushing Dust Collector Name Role Phone Avis Gamez MD Primary Care Provider Allergies Active Allergy Reactions Criticality Noted Date Comments Morphine Urticarial Rash 01/04/2014 Medications * This document contains information received from the source organization and may not represent a complete record from that organization. Folic Acid 1 MG Tab 1 TABLET DAILY Active Social History Tobacco Use Types Packs/Day Years Used Date Smoking Tobacco: Never Assessed Comments Unknown Sex and Gender Information Value Date Recorded Sex Assigned at Not on file Legal Sex Female 8:19 AM EDT Gender Identity Not on file Sexual Orientation Not on file Last Filed Vital Signs Vital Sign Reading Time Taken Comments Blood Pressure 139/73 01/04/2014 7:02 PM EDT Pulse 79 01/04/2014 7:02 PM EDT Temperature 37.6 ??C (99.7 ??F) 01/04/2014 7:02 PM ED T Respiratory Rate - - Oxygen Saturation - - Inhaled Oxygen Concentration - - Weight 90.7 kg (200 lb) 01/04/2014 7:02 PM EDT Height 162.6 cm (5' 4 ) 01/04/2014 7:02 PM EDT Body Mass Index 34.33 01/04/2014 7:02 PM EDT Plan of Treatment Health Maintenance Due Date Last Done Comments Hepatitis C Screening 1969 Pap Smear 1985 DTaP/Tdap/Td (1 - Tdap) 1987 Hep B (1 of 3 - 19+ 3-dose series) 1988 Mammogram/Breast Imaging 2009 Pneumococcal 50+ years (1 of 1 - PCV) 2019 Zoster (Shingrix) (1 of 2) 2019 COVID-19 Vaccine (2023-2 5 season) 2023 Influenza (#1) 2023 HPV Vaccine Aged Out No longer eligi ble based on patient's age to complete this topic Hep A Aged Out No longer eligi ble based on patient's age to complete this topic Hib Aged Out No longer eligi ble based on patient's age to complete this topic Meningococcal ACWY Aged Out No longer eligible based on patient's age to complete this topic Insurance * Guarantor: TRACI SOARES Account Type Relation to Patient Date of Phone Billing Address Personal/Family [address] [place] [address] [email or web address] PPO Care Teams Ore Crushing Dust Collector Relationship Specialty Start Date End Date Avis Gamez MD [address] [address] PCP - General Family Medicine 01/04/14
--- OUTSIDE RECORDS SUMMARY | 2024-08-24 13:24 | XMS_ITS | Encounter Summary ---
Author Organization [facility] Address [address] [place] [address] Care Team Providers Care Direct Customer Service Representative Name Role Phone William Huizar DO Primary Care Provider [phone] Encounter Details Date Type Department Care Team (Late st Contact Info) Description 01/10/2017 Ophthalmology Data Conversion [facility] Medical [facility] Ophthalmology [address] [place] [address] Pinky Rasheed MD [address] [place] [address] Social History Tobacco Use Types Packs/Day Years Used Date Smoking Tobacco: Former Comments:: Comments Unknown Sex and Gender Information Value Date Recorded Sex Assigned at Female 02/04/2023 5:51 PM EDT Legal Sex Female 1:55 AM EDT Gender Identity Female 02/04/2023 5:51 PM EDT Sexual Orientation Straight 06/11/2024 10 :07 AM EST documented as of this encounter Plan of Treatment Not on file documented as of this encounter Visit Diagnoses Not on filedocumented in this encounter Additional Health Concerns Infection Onset Date Last Indicated Resolved Time COVID-19 - Suspected infection 03/06/2021 03/06/2021 03/20/2021 10:34 PM EST R/O C.diff 04/05/2022 04/06/2022 04/10/2022 7:35 AM EST documented as of this encounter Care Teams Direct Customer Service Representative Relationship Specialty Start Date End Date William Huizar DO [address] [place] [address] PCP - General 10/25/16 documented as of this encounter
--- OUTSIDE RECORDS SUMMARY | 2024-08-24 13:24 | XMS_ITS | Encounter Summary ---
Author Organization [facility] Address [address] [place] [address] Care Team Providers Care Teacher Home Therapy Name Role Phone William Huizar DO Primary Care Provider [phone] Encounter Details Date Type Department Care Team (Latest Contact Info) Description 04/03/2017 ShipHawkt Message [facility] [address] [place] [address] Chimney Sweeper: Lily Lawrence MD [address] [place] [address] RE: Prescription Question Social History Tobacco Use Types Packs/Day Years Used Date Smoking Tobacco: Former Smokeless Tobacco: Never Comments:: Comments Unknown Sex and Gender Information [...] documented as of this encounter Care Teams Teacher Home Therapy Relationship Specialty Start Date End Date William Huizar DO [address] [place] [address] PCP - General 10/25/16 documented as of this encounter
--- OUTSIDE RECORDS SUMMARY | 2024-08-24 13:24 | XMS_ITS | Encounter Summary ---
Author Organization [facility] Address [address] [place] [address] Care Team Providers Care Routeman Name Role Phone William Huizar DO Primary Care Provider [phone] Encounter Details Date Type Department Care Team (Late st Contact Info) Description 11/10/2019 Ophthalmology Data Conversion [facility] Medical [facility] Ophthalmology [address] [place] [address] Pinky Rasheed MD [address] [place] [phone] Social History Tobacco Use Types Packs/Day Years Used Date Smoking Tobacco: Former Smokeless Tobacco: Never Comments:: Alcohol Use Standard Drinks/Week Comments No 0 (1 standard drink = 0.6 oz pur e alcohol) Comments Unknown Sex and Gender Information Value [...] documented as of this encounter Care Teams Routeman Relationship Specialty Start Date End Date William Huizar DO [address] [place] [address] PCP - General 10/25/16 documented as of this encounter
--- OUTSIDE RECORDS SUMMARY | 2024-08-24 13:24 | XMS_ITS | Encounter Summary ---
Author Organization [facility] Address [address] [place] [address] Care Team Providers Care Process Excellence Manager Name Role Phone William Huizar DO Primary Care Provider [phone] Encounter Details Date Type Department Care Team (Late st Contact Info) Description 10/28/2018 Ophthalmology Data Conversion [facility] Medical [facility] Ophthalmology [address] [place] [address] Pinky Rasheed MD [address] [place] [phone] Social History Tobacco Use Types Packs/Day Years [...] documented as of this encounter Care Teams Process Excellence Manager Relationship Specialty Start Date End Date William Huizar DO [address] [place] [address] PCP - General 10/25/16 documented as of this encounter
--- OUTSIDE RECORDS SUMMARY | 2024-08-24 13:24 | XMS_ITS | Encounter Summary ---
Author Organization [facility] Address [address] [place] [address] Care Team Providers Care Disease Case Manager Rn Name Role Phone William Huizar DO Primary Care Provider [phone] Encounter Details Date Type Department Care Team (Late st Contact Info) Description 10/22/2017 Ophthalmology Data Conversion [facility] Medical [facility] Ophthalmology [address] [place] [address] Pinky Rasheed MD [address] [place] [address] Social History Tobacco Use Types Packs/Day Years [...] PM EST R/O C.diff 04/05/2022 04/06/2022 04/10/2022 7:3 5 AM EST documented as of this encounter Care Teams Disease Case Manager Rn Relationship Specialty Start Date End Date William Huizar DO [address] [place] [address] PCP - General 10/25/16 documented as of this encounter
--- OUTSIDE RECORDS SUMMARY | 2024-08-24 13:24 | XMS_ITS | Encounter Summary ---
Author Organization [facility] Address [address] [place] [address] Care Team Providers Care Safety Tech Name Role Phone William Huizar DO Primary Care Provider [phone] Encounter Details Date Type Department Care Team (Late st Contact Info) Description 01/10/2017 Ophthalmology Data Conversion [facility] Medical [facility] Ophthalmology [address] [place] [address] Pinky Rasheed MD [address] [place] [address] Social History Tobacco Use Types Packs/Day Years [...] documented as of this encounter Care Teams Safety Tech Relationship Specialty Start Date End Date William Huizar DO [address] [place] [address] PCP - General 10/25/16 documented as of this encounter
--- OUTSIDE RECORDS SUMMARY | 2024-08-24 13:24 | XMS_ITS | Encounter Summary ---
Author Organization [facility] Address [address] [place] [address] Care Team Providers Care Science Professor Name Role Phone William Huizar DO Primary Care Provider [phone] Encounter Details Date Type Department Care Team (Late st Contact Info) Description 04/11/2022 Orders Only [facility] Nuclear Medicine [address] [place] [address] Jonathan Kent MD [address] [place] [address] Social History Tobacco Use Types Packs/Day Years [...] Diagnoses Not on filedocumented in this encounter Care Teams Science Professor Relationship Specialty Start Date End Date William Huizar DO [address] [place] [address] PCP - General 10/25/16 documented as of this encounter
--- OUTSIDE RECORDS SUMMARY | 2024-08-24 13:24 | XMS_ITS | Encounter Summary ---
Author Organization [facility] Address [address] [place] [address] Care Team Providers Care Band Machine Operator Name Role Phone William Huizar DO Primary Care Provider [phone] Encounter Details Date Type Department Care Team (Late st Contact Info) Description 05/01/2017 Ophthalmology Data Conversion [facility] Medical [facility] Ophthalmology [address] [place] [address] Pinky Rasheed MD [address] [place] [address] Social History Tobacco Use Types Packs/Day Years [...] documented as of this encounter Care Teams Band Machine Operator Relationship Specialty Start Date End Date William Huizar DO [address] [place] [address] PCP - General 10/25/16 documented as of this encounter
--- OUTSIDE RECORDS SUMMARY | 2024-08-24 13:24 | XMS_ITS | Encounter Summary ---
Author Organization [facility] Address [address] [place] [address] Care Team Providers Care Dry Chain Puller Name Role Phone William Huizar DO Primary Care Provider [phone] Encounter Details Date Type Department Care Team (Latest Contact Info) Description 07/07/2017 Kickfiret Message [facility] Rheumatology Clinic [address] [place] [address] Turning Sander Operator: Lily Lawrence MD [address] [place] [address] RE: Test Results Question Social History Tobacco Use Types Packs/Day [...] documented as of this encounter Care Teams Dry Chain Puller Relationship Specialty Start Date End Date William Huizar DO [address] [place] [address] PCP - General 10/25/16 documented as of this encounter
--- OUTSIDE RECORDS SUMMARY | 2024-08-24 13:24 | XMS_ITS | Encounter Summary ---
Author Organization [facility] Address [address] [place] [address] Care Team Providers Care Clip On Sunglasses Inspector Name Role Phone William Huizar DO Primary Care Provider [phone] Encounter Details Date Type Department Care Team (Late st Contact Info) Description 08/09/2016 Ophthalmology Data Conversion [facility] Medical [facility] Ophthalmology [address] [place] [phone] Pinky Rasheed MD [address] [place] [phone] Social History Tobacco Use Types Packs/Day Years [...] documented as of this encounter Care Teams Clip On Sunglasses Inspector Relationship Specialty Start Date End Date William Huizar DO [address] [place] [address] PCP - General 7/20/17 documented as of this encounter
--- OUTSIDE RECORDS SUMMARY | 2024-08-24 13:24 | XMS_ITS | Encounter Summary ---
Author Organization [facility] Address [address] [place] [address] Care Team Providers Care Swimming Instructor Name Role Phone William Huizar DO Primary Care Provider [phone] Encounter Details Date Type Department Care Team (Late st Contact Info) Description 10/28/2018 Ophthalmology Data Conversion [facility] Ophthalmology [address] [place] [phone] Pinky Rasheed MD [address] [place] [phone] Social History Tobacco Use Types Packs/Day Years [...] documented as of this encounter Care Teams Swimming Instructor Relationship Specialty Start Date End Date William Huizar DO [address] [place] [phone] PCP - General 10/25/16 documented as of this encounter
--- OUTSIDE RECORDS SUMMARY | 2024-08-24 13:24 | XMS_ITS | Encounter Summary ---
Author Organization [facility] Address [address] [place] [address] Care Team Providers Care Mobile Product Manager Name Role Phone William Huizar DO Primary Care Provider [phone] Encounter Details Date Type Department Care Team (Late st Contact Info) Description 08/09/2016 Ophthalmology Data Conversion [facility] Ophthalmology [address] [place] [phone] Pinky Rasheed MD [address] [place] [phone] Social History Tobacco Use Types Packs/Day Years [...] documented as of this encounter Care Teams Mobile Product Manager Relationship Specialty Start Date End Date William Huizar DO [address] [place] [address] PCP - General 7/20/17 documented as of this encounter
--- OUTSIDE RECORDS SUMMARY | 2024-08-24 13:24 | XMS_ITS | Clinical Summary ---
Author Organization [facility] it Address [address] [place] [address] Care Team Providers Care Tool Analyst Name Role Phone William Huizar DO Primary Care Provider [phone] Social History Tobacco Use Types Packs/Day Years Used Date Smoking Tobacco: Never Assessed Comments Unknown Sex and Gender Information Value Date Recorded Sex Assigned at Not on file Legal Sex Female 2:03 AM EST Gender Identity Not on file Sexual Orientation Not on file Plan of Treatment Health Maintenance Due Date Last Done Comments Breast Cancer Screening 1969 DTaP,Tdap,and Td Vaccines (1 - Tdap) 1988 Hepatitis B Vaccines (1 of 3 - 19+ 3-dose series) 1988 Cervical Cancer Screening: P ap Smear 1990 Pneumococcal Vaccine: 50+ Ye ars (1 of 1 - PCV) 2019 Zoster Vaccines (1 of 2) 2019 Colorectal Cancer Screening: Colonoscopy 03/11/2022 Depression Screening 03/11/2022 HIV Screening 03/11/2022 Hepatitis C Screening 03/11/2022 Social Influencers of Health Screening 03/11/2022 COVID-19 Vaccine (2023-2 5 season) 2023 Influenza Vaccine (Season Ended) 2024 HIB Vaccines Aged Out No longer eligi ble based on patient's age to complete this topic HPV Vaccines Aged Out No longer eligi ble based on patient's age to complete this topic Hepatitis A Vaccines Aged Out No long er eligible based on patient's age to complete this topic IPV Vaccines Aged Out No longer eligi ble based on patient's age to complete this topic MMR Vaccines Aged Out No longer eligi ble based on patient's age to complete this topic Meningococcal ACWY Vaccine Aged Out N o longer eligible based on patient's age to complete this topic Meningococcal B Vaccine Aged Out No l onger eligible based on patient's age to complete this topic Pneumococcal Vaccine: Pediat rics (0 to 5 Years) and At-Risk Patients (6 to 64 Years) Aged Out No longer eligible b ased on patient's age to complete this topic RSV Immunization Patients Un cherelle 20 months Aged Out No longer eligible b ased on patient's age to complete this topic Varicella Vaccines Aged Out No longer eligible based on patient's age to complete this topic Care Teams Tool Analyst Relationship Specialty Start Date End Date William Huizar DO [address] [place] [id number] PCP - General Internal Medicine 06/12/21
--- OUTSIDE RECORDS SUMMARY | 2024-08-24 13:24 | XMS_ITS | Encounter Summary ---
Author Organization [facility] Address [address] [place] [address] Care Team Providers Care Telephoner Name Role Phone William Huizar DO Primary Care Provider [phone] Encounter Details Date Type Department Care Team (Late st Contact Info) Description 04/12/2020 Ophthalmology Data Conversion [facility] Medical [facility] Ophthalmology [address] [place] [phone] Pinky Rasheed MD [address] [place] [phone] Social History Tobacco Use Types Packs/Day Years [...] documented as of this encounter Care Teams Telephoner Relationship Specialty Start Date End Date William Huizar DO [address] [place] [id number] PCP - General 10/25/16 documented as of this encounter
--- OUTSIDE RECORDS SUMMARY | 2024-08-24 13:25 | XMS_ITS | Encounter Summary ---
Author Organization [facility] Address [address] [place] [address] Care Team Providers Care Java Technical Architect Name Role Phone William Huizar DO Primary Care Provider [phone] Encounter Details Date Type Department Care Team (Late st Contact Info) Description 11/07/2016 Ophthalmology Data Conversion [email or web address] Medical [facility] Ophthalmology [address] [place] [phone] Pinky Rasheed MD [address] [place] [phone] Social History Tobacco Use Types Packs/Day Years [...] documented as of this encounter Care Teams Java Technical Architect Relationship Specialty Start Date End Date William Huizar DO [address] [place] [address] PCP - General 7/20/17 documented as of this encounter
--- OUTSIDE RECORDS SUMMARY | 2024-08-24 13:25 | XMS_ITS | Encounter Summary ---
Author Organization [facility] Address [address] [place] [address] Care Team Providers Care It Service Delivery Manager Name Role Phone William Huizar DO Primary Care Provider [phone] Encounter Details Date Type Department Care Team (Late st Contact Info) Description 11/07/2016 Ophthalmology Data Conversion [facility] Medical [facility] Ophthalmology [address] [place] [phone] Pinky Rasheed MD [address] [place] [phone] Social History Tobacco Use Types Packs/Day Years [...] documented as of this encounter Care Teams It Service Delivery Manager Relationship Specialty Start Date End Date William Huizar DO [address] [place] [address] PCP - General 7/20/17 documented as of this encounter
--- OUTSIDE RECORDS SUMMARY | 2024-08-24 13:25 | XMS_ITS | Encounter Summary ---
Author Organization [facility] Address [address] [place] [address] Care Team Providers Care Trim Mechanic Name Role Phone William Huizar DO Primary Care Provider [phone] Encounter Details Date Type Department Care Team (Late st Contact Info) Description 11/07/2016 Ophthalmology Data Conversion [facility] Medical [facility] Ophthalmology [address] [place] [phone] Pinky Rasheed MD [address] [place] [phone] Social History Tobacco Use Types Packs/Day Years [...] documented as of this encounter Care Teams Trim Mechanic Relationship Specialty Start Date End Date William Huizar DO [address] [place] [address] PCP - General 7/20/17 documented as of this encounter
--- OUTSIDE RECORDS SUMMARY | 2024-08-24 13:25 | XMS_ITS | Clinical Summary ---
Author Organization [facility] Address [address] [place] [address] Care Team Providers Care Union Steward Name Role Phone William HuizarRodo MUNIZ Primary Care Provider [phone] Allergies Active Allergy Reactions Criticality Noted Date Comments Ciprofloxacin Hives 01/07/2024 Hydromorphone Rash 02/15/2015 Cephalexin Rash 12/10/2023 Morphine Hives,Itching High Acetaminophen-Codeine Hives High Hydrocodone-Acetaminophen Hallucinations High Medications * This document contains information received from the source organization and may not represent a complete record from that organization. fluticasone propionate (FLONASE) 50 mcg/actuation nasal spray SMARTSI Puff(s) Both Nares Daily 3 Active ibuprofen (MOTRIN) 800 mg tablet Take 800 mg by mouth every 6 hours as needed for pain. Active albuterol (PROAIR HFA,VENTOLIN HFA) 90 mcg inhaler Inhale 2 puffs (180 mcg total) by mouth every 4 hours as needed for wheezing or shortness of breath. Use with spacer. 18 g 4 Active calcium carbonate-vitami n D3 600 mg-20 mcg (800 unit) tablet Take 1 tablet by mouth once a day. 90 tablet [address] (CYMBALTA) 60 mg capsule TAKE 1 CAPSULE BY MOUTH EVERY DAY 90 capsule 3 4 Active clobetasoL (TEMOVATE) 0.05% cream 4 Active omeprazole (PriLOSEC) 20 mg capsuleIndicatio ns:Gastro-esopha geal reflux disease without esophagitis,Righ t upper quadrant abdominal pain,Fever, unspecified fever cause,Colitis TAKE 2 CAPSULES ONCE DAILY 180 capsule 3 4 Active magnesium oxide (MAG-OX) 400 mg (241.3 mg mag) tablet Take 400 mg by mouth once a day. Active mupirocin (BACTROBAN) 2% ointment Apply topically to the affected area 2 times a day. Right leg - 10 days 30 g 4 Active amLODIPine (NORVASC) 5 mg tablet TAKE 1 TABLET BY MOUTH EVERY DAY 90 tablet 5 Active loratadine (CLARITIN) 10 mg tabletIndication s:Febrile illness, acute,Acute non-recurrent sinusitis of other sinus Take 1 tablet (10 mg total) by mouth once a day. 5 Active minocycline (MINOCIN) 50 mg capsule Take 1 capsule (50 mg total) by mouth once a day. 90 capsule 3 5 Active levothyroxine (SYNTHROID, LEVOTHROID) 100 mcg tablet TAKE 1 TABLET BY MOUTH EVERY DAY 90 tablet 5 Active Active Problems Problem Noted Date Diagnosed Date Febrile illness, acute 06/11/2024 Assessment & Plan (06/11/2024 11:03 AM EST): Day 7 of acute febrile illness now with progression of sinusitis symptoms. Discussed max Tylenol dose of 1000 mg 3 times a day, can add ibuprofen 800 mg 3 times a day with caution to watch for GI side effects. If she develops GI side effects she may increase her omeprazole from 20 to 40 mg daily for 2 weeks. Will send in a Z-Eleazar for sinusitis, restart her Flonase and add Claritin 10 mg daily. Cautioned not to take decongestants as she has history of hypertension. She is staying hydrated if she develops symptoms of hypotension call office. Also check blood pressures on home monitor to notice for any changes. She is unsure if her monitor is accurate. She is comfortable with this plan. We reviewed the medications use and side effects. She will call for any changes. Orders: azithromycin (ZITHROMAX) 250 mg tablet; Take 2 tablets (500 mg total) by mouth once a day for 1 day, THEN 1 tablet (250 mg total) once a day for 4 days. loratadine (CLARITIN) 10 mg tablet; Take 1 tablet (10 mg total) by mouth once a day. Other acute sinusitis 06/11/2024 Assessment & Plan (06/11/2024 11:03 AM EST): See febrile illness annotation Orders: azithromycin (ZITHROMAX) 250 mg tablet; Take 2 tablets (500 mg total) by mouth once a day for 1 day, THEN 1 tablet (250 mg total) once a day for 4 days. loratadine (CLARITIN) 10 mg tablet; Take 1 tablet (10 mg total) by mouth once a day. Insomnia 07/19/2023 Non-cancerous growth of soft tissue 02/18/2023 Right upper quadrant abdominal pain 06/14/2022 Assessment & Plan (06/14/2022 2:30 PM EST): RUQ and epigastric pain x 2 days Fever t max 101 3/7 and 3/8 Afebrile today when she woke up and in office (did have tylenol for headache this morning) Check cbc bmp hepatic panel and RUQ ultrasound Low cholesterol diet, low residual diet Discussed ER protocol: Return of fever, increasing pain, nausea vomiting Her symptoms are most consistent with gastritis and/or cholecystitis. From her clinical appearance and resolution of fevers, ascending cholangitis is low on the differential. She is not presenting in acute distress. she has already called Dr. Villagomez and left a message with her status and I asked her to call him again tomorrow. If her fevers do not come back and she feels better, labs are wnl, ok to proceed with colonoscopy. Fever 06/14/2022 Assessment & Plan (06/14/2022 2:25 PM EST): Fever for 2 days with upper epigastric pain and RUQ pain eval for GB disease, check cbc bmp hepatic panel IF fever returns, ER for work up No sinus/resp/ sx Diarrhea unchanged and has less RLQ pain Discussed work up, when to go to ER, her concerns over her shunt and infection. She agrees and understands. Colitis 06/14/2022 Assessment & Plan (06/14/2022 2:26 PM EST): diag on CT scan rectal and sigmoid colon Being seen by GI and colonoscopy 06/18/22 No change in diarrhea Less R lower abd pain Pain in left buttock 11/07/2021 Assessment & Plan (11/07/2021 4:00 PM EDT): S/p fall last week on buttocks, presents with left buttock pain, no ecchymosis on exam, plan is xray to r/o fx, advised NSAIDS with food, she takes Celebrex and suggested to add Tylenol three times daily, also continue ICE as tolerated, will follow up xray results. Urinary frequency 03/22/2021 Assessment & Plan (03/22/2021 11:24 AM EST): Reports urinary urgency/frequency, noted history of urinary incont. she denies any recent incontinence. Urine dip negative, advised her to see her PARK ATTENDANT for further evaluation. Elevated BP without diagnosis of hypertension Assessment & Plan (03/22/2021 11:27 AM EST): BP 148/100, denies any headache or chest pain. she reports recent stress due to Covid illness last month and also her father is now on hospice, I also reviewed with her her previous 2 BP readings earlier this year, diastolic elevated 90's and recommended to start a anti-hypertensive medication but she declines, she requests to come back next month, advised low salt diet, will check CMP today as her sodium was low last month. Return in office in 4 weeks. Patient agreeable. Adjustment disorder 05/17/2020 Depression 05/17/2020 Fall 05/17/2020 Assessment & Plan (11/07/2021 3:58 PM EDT): Reports a fall while vacationing last week on her buttocks, having left buttocks discomfort, xray ordered. Fluttering sensation of heart 05/17/2020 Hyperlipidemia 05/17/2020 Incontinence in female 05/17/2020 Assessment & Plan (03/22/2021 11:28 AM EST): Urine dip in office negative. Discussed following up with her PARK ATTENDANT, she declines referral and will make an appt. Influenza vaccination declined 05/17/2020 Assessment & Plan (03/22/2021 11:25 AM EST): She declines influenza vaccine today Intracranial hypertension 05/17/2020 Labral tear of right hip joint 05/17/2020 Nail discoloration 05/17/2020 Partial hamstring tear 05/17/2020 Postmenopausal 05/17/2020 Rash, skin 05/17/2020 Raynaud disease 05/17/2020 Sensorineural hearing loss 05/17/2020 Stress incontinence in female 05/17/2020 Tendinopathy of right gluteus medius 05/17/2020 Atrophy of vagina 05/17/2020 Cervical myelopathy 05/17/2020 Osteopenia 05/17/2020 Elevated glucose 05/17/2020 Grief reaction 05/17/2020 Assessment & Plan (05/17/2020 2:55 PM EST): Lost her brother last month and found him at his home which was unexpected. She is having a difficult time with the memory of how she found him. It is affecting her sleep. She is currently on Cymbalta 60mg daily. She is going to look into some counseling/therapy, we will start lorazepam at bedtime to help with sleep. Masspat checked. She is aware to keep medication in a safe place, risk of accidental overdose. She agrees to keep the medication locked up. Agrees to avoid alcohol while taking. CHIEF OF PLANNING (ventriculoperitoneal) shunt status 8 High risk medication use 11/28/2016 Greater trochanteric bursitis of right hip 07/17 Cervical spinal cord compression 07/05/2016 Pain, low back 05/29/2016 Overview (12/28/2016): low back pain and gait imbalance Cervical radiculopathy 03/21/2016 Hip pain 03/21/2016 Dry eye syndrome, bilateral 03/14/2016 Cervical osteoarthritis 08/29/2015 Thoracic spondylosis 07/21/2015 Compression fracture of vertebra, non-traumatic 07/06/2015 Vulvar atrophy 01/31/2015 Peripheral neuropathy 11/01/2014 Asthenopia, bilateral 10/14/2014 Myopia OU 10/14/2014 Presbyopia OU 10/14/2014 Migraine with aura 09/29/2014 Transient visual disturbance 09/24/2014 Left knee injury 06/18/2014 Polyarthritis 06/02/2014 Papilledema 11/11/2013 Shoulder pain 09/09/2013 Ulnar nerve compression 05/08/2013 Esophageal reflux 03/04/2013 Assessment & Plan (06/14/2022 2:25 PM EST): For next 2 weeks increase omeprazole from 20 mg to 40 mg daily, Med is listed BID but she takes it daily She does take 30 min before eating Absolute anemia 01/13/2013 Chondromalacia of patella Right 09/26/2012 Antiphospholipid antibody syndrome 01/18/2012 Benign intracranial hypertension 07/11/2011 Hypothyroidism 02/13/2011 Systemic lupus erythematosus 02/06/2011 Overview (12/28/2016): polyarthralgias, reported rash, Raynauds, sicca, +CLEO 1:400 outside hospital and mildly elevated DS DNA. Plaquenil 12/17 w/ good response. +SAVANNA IgM 18, 21 H/O nicotine dependence 01/09/2011 Overview (12/28/2016): Quit 5years Obesity 01/09/2011 Resolved Problems Problem Noted Date Diagnosed Date Resolved Date Dizziness 05/17/2020 05/17/2020 Overweight for height 05/17/20202020 Weakness 05/17/2020 05/17/2020 Wheeze 05/17/2020 05/17/2020 Atrophic vulva 05/17/2020 03/22/2021 Peripheral neuropathy 05/17/20202020 Influenza 05/14/2016 05/17/2020 Syncope 07/28/2015 08/07/2021 Osteopenia 07/06/2015 03/22/2021 Acute left flank pain 02/15/20152020 Pre-op exam 01/11/2015 05/17/2020 Depression 11/01/2014 03/22/2021 Astigmatism, bilateral 10/14/201408/07 Pulsatile tinnitus 10/14/2014 Vaginal itching 06/28/2014 03/22/2021 Spleen enlargement 06/02/2014 2 Headache 04/14/2014 03/22/2021 Acute upper back pain 02/05/20142020 Skin lesion of face 02/05/2014 08/08/19 22 Acute pharyngitis 07/14/2013 05/17/2020 Dysuria 06/10/2013 05/17/2020 Acute lateral meniscal tear 04/24/2013 05/17/2020 Shortness of breath 01/13/2013 08/08/19 22 Prediabetes 09/12/2011 08/07/2021 Iron deficiency anemia goldie marquis to inadequate dietary iron intake 01/09/2011 2 Encounters Date Type Department Care Team Description 07/12/[address] Internal Medicine [address] [place] [phone] William Huizar, DO 07/06/2024 myChart Message [address] Internal Medicine [address] [place] [phone] William Huizar, DO Extremely painfull left big toe swelling and reddness 07/06/2024 Patient Self-Triage [address] [address] Urgent Care, [facility] PhysicianMD 06/28/[address] Internal Medicine [address] [place] [phone] William Huizar, DO 06/17/2024 myChart Message [address] Internal Medicine [address] [place] [phone] William Huizar, DO Fu 06/11/2024 10:30 AM [facility] Telehealth [address] Internal Medicine [address] [place] [phone] Tami Ovalle PA Febrile illness, acute (Primary Dx); Acute non-recurrent sinusitis of other sinus 06/11/2024 Telephone [place] [address] [facility] Internal Medicine [address] [place] [phone] William Huizar, DO Fever; URI from Last 3 Months Immunizations Immunization Administration Dates Next Due INFLUENZA, SPLIT VIRUS, TRIVALENT, PF 01/13/2013 Influenza, Trivalent, MDV, Injectable 03/26/2012 ,02/13/2011 Pneumococcal Polysaccharide Vaccine, 23 Valent 0 12/18/2016 Tetanus Toxoid, Reduced Diph theria Toxoid, and Acellular Pertussis Vaccine, Adsorbed 12/18/2016 Family History Medical History Relation Name Comments Other Brother Fraternal histo ry of Alcoholism Other Father Paternal histor y of Rheumatoid Arthritis /Paternal history of Hypertension /Paternal history of Hypercholesterolemia Other Maternal Grandmother Materna l grandmother's history of Carcinoma Of The Pancreas Other Mother Maternal histor y of Multiple Sclerosis Breast cancer Mother's Sister Other Mother's Sister Maternal aun t's history of Breast Cancer Other Other Denied Family h istory of Colon Cancer Other Paternal Grandfather Paterna l grandfather's history of Acute Myocardial Infarction early 40s Other Paternal Grandmother Paterna l grandmother's history of Esophageal Cancer Relation Name Status Comments Brother Father Maternal Grandmother Mother Mother's Sister Other Paternal Grandfather Paternal Grandmother Social History Tobacco Use Types Packs/Day Years Used Date Smoking Tobacco: Former Cigarettes Passive Smoke Exposure: Past Smokeless Tobacco: Never Tobacco Cessation:Counseling Given: Not Answered Comments:: Alcohol Use Standard Drinks/Week Comments No 0 (1 standard drink = 0.6 oz pur e alcohol) [facility] Utilities Answer Date Recorded In the past 12 months has e [employer], oil, or water [employer] threatened to shut off services in your home? No 06/11/2024 Hunger Vital Sign Answer Date Recorded Within the past 12 months, y ou worried that your food would run out before you got the money to buy more. Never true Within the past 12 months, t he food you bought just didn't last and you didn't have money to get more. Sometimes true 09/2024 Transportation Answer Date Recorded In the past 12 months, has l ack of reliable transportation kept you from medical appointments, meetings, work or from getting things needed for daily living? Yes 06/11/2024 Housing Answer Date Recorded Housing Risk Low 1 06/11/2024 Housing Risk Medium Not on file 06/11/2024 Housing Risk High Not on file 06/11/2024 What is your living situation today? LSSTEADY 06/11/2024 Comments No Sex and Gender Information Value Date Recorded Sex Assigned at Female 02/04/2023 5:51 PM EDT Legal Sex Female 1:55 AM EDT Gender Identity Female 02/04/2023 5:51 PM EDT Sexual Orientation Straight 06/11/2024 10 :07 AM EST Last Filed Vital Signs Vital Sign Reading Time Taken Comments Blood Pressure 164/107 02/26/2024 8:00 AM EST Pulse 96 02/26/2024 8:15 AM EST Temperature 36.3 ??C (97.4 ??F) 02/26/2024 4:00 AM ES T Respiratory Rate 18 02/26/2024 8:15 AM EST Oxygen Saturation 99% 02/26/2024 7:15 AM EST Inhaled Oxygen Concentration - - Weight 90.7 kg (200 lb) 02/26/2024 4:12 AM EST Height 162.6 cm (5' 4 ) 02/26/2024 4:12 AM EST Body Mass Index 34.33 02/26/2024 4:12 AM EST Plan of Treatment Health Maintenance Due Date Last Done Comments Cologuard 1969 FOBT / Fit Test 1969 Sigmoidoscopy 1969 Pneumococcal Vaccine: 50+ Ye ars (2 of 2 - PCV) 2019 12/18/2016 Zoster Vaccines (1 of 2) 2019 Cervical Cancer Screening 10/04/2021 HPV and Pap Smear 10/04/2021 10/04/2016, , 05/12/2012, Additional history exists Pap Smear 10/04/2021 10/04/2016, 09/07, 05/18/2013, Additional history exists COVID-19 Vaccine ( - 2023-2 5 season) 2023 Alcohol/Substance Use Screening 04/08/2024 , 11/30/2022 Depression Screening and Follow-Up 04/08/2024 Social Drivers of Health Esthela ual Screening 04/08/2024 Influenza Vaccine (Season Ended) 2024 01/13/2013, 03/26/2012, 02/13/2011 Mammogram 08/12/2025 08/13/2023, 0510/2023, 09/20/2022, Additional history exists DTaP,Tdap,and Td Vaccines (2 - Td or Tdap) 12/18/2026 12/18/2016 Colon Cancer Screening 06/18/2032 Colonoscopy 06/18/2032 06/18/2022, 06/06, 03/20/2013 RSV Vaccine (60+ years old a nd patients) (1 - 1-dose 75+ series) 2044 CT Lung Cancer Screening (Baseline) Discontinued 06/15/2014, 03/03/2013, 03/28/2012 HIV Screening Completed 05/22/2022 Hepatitis C Screening Completed 12/12/2023 , 12/12/2023, 08/24/2020, Additional history exists Hepatitis B Vaccines Discontinued Medical Devices Implanted Type Area Cherry Picker Operator Device Identifier Shelf Expiration Date Model / Serial / Lot Shunt-08/23/2016 Implanted:2016 by Heather Garcia MD (Quantity not on file) Shunt N/A: Scalp Medtronic [id number] / / Description:Medtronic Strata II Reprogrammable Valve Procedures * Due to [place] [employer] law, this organization might not be sharing negative HIV tests. Procedure Name Priority Date/Time Associated Diagnosis Comments HEPATITIS C ANTIBODY W/REFLEX TO HCV RNA, QUANTITATIVE PCR Routine 12/12/2023 8:47 AM EDT CLEO positive RIRI BILATERAL DIAGNOSTIC DIGITAL MAMMOGRAM WITH RONALD Routine 08/13/2023 8:51 AM EDT Breast pain, left Visit for screening mammogram HM COLONOSCOPY Routine 06/18/2022 PAP W/HPV, CONVERSION Routine 10/04/2016 11:[address] CHEST W CONTRAST Routine 06/15/2014 3 :12 PM EDT from Last 3 Months or Most Recently Relevant to Health Maintenance Results * Due to [place] [employer] law, this organization might not be sharing negative HIV tests. * Hepatitis C Antibody w/Reflex to HCV RNA, Quantitative PCR (12/12/2023 8:47 AM EDT) Hepatitis C Antibody Interpretation Nonreactive Nonreactive 12/12/2023 4:25 PM EDT [facility] Blood Structure of peripheral vein / Unknown Venipuncture / Unknown 12/12/2023 8:47 AM EDT 12/12/2023 8:48 AM EDT us Chely Villanueva MD LAB BLOOD ORDERABLES Final Resu lt [facility] [address] [place] [address], * [facility] Bilateral Diagnostic Digital Mammogram with Ronald (08/13/2023 8:51 AM EDT) Anatomical Region Laterality Modality Breast Bilateral Mammography Impressions 08/13/2023 9:16 AM EDT No mammographic evidence of malignancy. ??No mammographic or sonographic abnormality to explain the patient's focal left breast pain. Recommend patient's breast pain be managed clinically. BI-RADS?? ATLAS category (overall): 2 - Benign MANAGEMENT: Clinical Evaluation is recommended for left Routine Screening Mammogram in 1 Year is recommended for right The patient was entered into a reminder system with a target date for their next breast imaging exam. If this radiology report contains a blank impression section, it is an incomplete radiology report. ??Please contact the interpreting radiologist or applicable radiology division as soon as possible to obtain the completed interpretation. Narrative 08/13/2023 9:16 AM EDT EXAMINATION: [facility] Bilateral Diagnostic Digital Mammogram with Ronald US Left Breast Limited. INDICATION: 53-year-old woman with 1 year of left breast pain. ??She also reports skin discoloration in the area. R2 CAD was used in the interpretation of this study. COMPARISON: Multiple priors in PACS. FINDINGS: Bilateral Breast Findings: The breasts are almost entirely fatty. Shunt catheter tubing projects over the medial right breast. ??There are stable postsurgical changes in both breasts consistent with history of reduction mammoplasty. ??No suspicious masses, areas of unexplained architectural distortion, or suspicious clusters of calcifications are seen. ??There is no mammographic abnormality to correlate with the area of pain in the lower inner quadrant of the left breast. Targeted ultrasound of the area of pain in the left breast was performed as directed by the patient. ??No sonographic abnormalities were identified. us William Huizar DO IMG BI PROCEDURES Final Resu lt * HM Colonoscopy (06/18/2022) us Unknown Provider HEALTH MAINTENANCE Final Res ult * Pap w/HPV (10/04/2016 11:26 AM EDT) Path Procedure TPGAS ([id number]) 1 ?? HPVHR([id number]) 1 ?? Edited by: [id number] - 1126 GUERLINE ?? [id number] - 1457 -[id number] [facility] Specimen Labeled As: 1 CERVICAL/ENDOCERVI ASHLEY CYTO MATERIAL - Edited by: [id number] - 6 NEO [facility] Additional Test Information Specimens were tested for high risk HPV using the FDA approved Digene Hybrid ?? Capture II kit, in the Diagnostic Molecular Oncology Lab at [facility]. ??This test can detect HPV high risk types 16, 18, 31, 33, 35, 39, ?? 45, 51, 52, 56, 58, 59 and 68. ? High-risk subtypes of HPV are found in ~96% of patients with high grade ?? squamous intraepithelial lesions and cervical squamous cell carcinoma. ?? Additional studies may be indicated in spite of a negative HPV test, e.g. ?? in patients with a friable cervix or multiple previous abnormal Pap tests. ??HPV ?? testing is not recommended for managing patients with atypical glandular cells. ?? Not all high-risk HPV infections are associated with a histologic or cytologic ?? abnormality. ??We endorse the recommendations of the [place] Society for ?? Colposcopy and Cervical Pathology for management of Pap test results, available ?? at www.asccp.org. ? ASCCP guidelines also recommend HPV 16/18 genotyping in patients over the age ?? of 30 who have had positive high risk HPV testing, but have a negative ?? morphologic Pap test (http://www.asccp. org/consensus.shtm l). ? The performance characteristics of this test have been validated by the ?? Laboratory of Diagnostic Molecular Oncology. ??They have not been cleared or ?? approved by the U.S. ??Food and Drug Administration (FDA). The FDA has ?? determined that such clearance or approval is not necessary. ??The laboratory is ?? certified (CLIA-88) to perform high complexity clinical laboratory testing. ?? Edited by: [id number] - 1457 [id number] [facility] Diagnosis ThinPrep Pap Test ? Adequacy: Satisfactory for evaluation - no evidence of Transformation Zone ? sampling. ? Interpretation: Negative for Intraepithelial Lesion or Malignancy ? Remarks/Recommenda tions: ?? This is the result of a morphological screening test with an inherent ?? possibility of a false negative interpretation. ?? This Pap test was examined in accordance with the [facility] Cyt[facility] ?? Laboratory written policy, which incorporates all CLIA mandates. Screening ?? guidelines can be found in Am J Clin Pathol 2012;137:516-542. ??We endorse the ?? practice guidelines developed by ASCCP and published in the Journal Lower ?? Genital Tract Disease 17(5):S1-S27 (2013). ? This Pap test was examined by the ThinPrep Imaging System, [employer], [place], [place]. ?- High risk HPV DNA subtypes: NEGATIVE ?? Edited by: [id number] - 1457 [id number] ?? [id number] - 1036 [id number] [facility] Gynecologic Clinical Data Specimen source:, THINPREP (CERVICAL AND ENDOCERVICAL) [facility] Gynecologic Clinical Data Gynecologic findings:, POST MENOPAUSAL [facility] Pathology Codes Client Order Code:, TPHGS3 [facility] Pathology Codes Bill Type:, 3RD REPUBL[employer] BILLING [facility] Completed Report [id number] HPV, HIGH RISK TYPES 1 [facility] Marker 1 CHELITA,MD NEGATIVE [facility] Marker 2 SIMI ALVARADO [facility] Marker 3 NILM,NILM [facility] Marker 4 NTZ,NTZ [facility] Marker 5 RIM,RECEIVED IN MOLECULAR [facility] Marker 6 SW,SWETHA FRIED [facility] Cc Results To RADHA SAMAYOA ??[id number] ?? SANTOS Rascon D.O. REF ??[id number] [facility] Signature REPORT SIGNED: INEZ REN 10/16/16 [facility] Sign Out Audit INEZ REN [id number] FINAL [place] [id number] [facility] Cytology / Unknown 7 11:26 AM EDT 10/05/2016 11:26 AM EDT us Kisha Root MD LAB HISTORICAL RESULTS Final Res ult [facility] [facility] [address] [place] [address], [place] * CT Chest W Contrast (06/15/2014 3:12 PM EDT) Anatomical Region Laterality Modality Body Computed Tomogra phy 06/15/2014 2:50 PM EDT Impressions 06/16/2014 4:54 PM EDT 1. No evidence of neoplasm in the chest. 2. No change pulmonary nodule. Rest of findings are unchanged as described above. 3. Please see also the separate report of the dedicated CT of the Abdomen, performed at the same time COMMUNICATION: ??Per this written report. Contrast Information : OMNIPAQUE 350: 100 ML, IV POWER INJ Narrative 06/16/2014 4:54 PM EDT EXAMINATION: ??Helical CT of the Chest INDICATION: ??Fever of unknown origin. fatigue. splenomegaly with question of lymphoma. TECHNIQUE: With IV Contrast Coronal and sagittal reformatted sequences were provided. Axial MIP images were also provided. COMPARISON: 03/03/2013 FINDINGS: LUNGS, TRACHEA and PLEURA: No significant interval change of 3 mm nodule in the left lower lobe on image 138, series 2 versus 116, series 5. No new nodules or any other new abnormalities are seen in the lungs or in the pleura. LOWER NECK: No significant abnormality. MEDIASTINUM: No mediastinal or hilar lymphadenopathy. No significant coronary, aortic PA arteries or cardiac abnormalities No pericardial abnormality. No significant esophageal abnormality. AXILLA, CHEST WALL (limited): No significant abnormality UPPER ABDOMEN (limited): Please see also the separate report of the dedicated CT of the Abdomen, performed at the same time BONES: ?? No change disc narrowing and hypertrophic changes in the thoracic spine and mild compression of the body of T9 Procedure Note Fan Mayank P - 12/05/2016 EXAMINATION: Helical CT of the Chest INDICATION: Fever of unknown origin. fatigue. splenomegaly with question of lymphoma. TECHNIQUE: With IV Contrast Coronal and sagittal reformatted sequences were provided. Axial MIP images were also provided. COMPARISON: 03/03/2013 FINDINGS: LUNGS, TRACHEA and PLEURA: No significant interval change of 3 mm nodule in the left lower lobe on image 138, series 2 versus 116, series 5. No new nodules or any other new abnormalities are seen in the lungs or in the pleura. LOWER NECK: No significant abnormality. MEDIASTINUM: No mediastinal or hilar lymphadenopathy. No significant coronary, aortic PA arteries or cardiac abnormalities No pericardial abnormality. No significant esophageal abnormality. AXILLA, CHEST WALL (limited): No significant abnormality UPPER ABDOMEN (limited): Please see also the separate report of the dedicated CT of the Abdomen, performed at the same time BONES: No change disc narrowing and hypertrophic changes in the thoracic spine and mild compression of the body of T9 IMPRESSION: 1. No evidence of neoplasm in the chest. 2. No change pulmonary nodule. Rest of findings are unchanged as described above. 3. Please see also the separate report of the dedicated CT of the Abdomen, performed at the same time COMMUNICATION: Per this written report. 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
--- OUTSIDE RECORDS SUMMARY | 2024-08-24 13:25 | XMS_ITS | Clinical Summary ---
Author Organization [facility] Address [address] [place] [address] Care Team Providers Care Motorcoach Driver Name Role Phone Avis Gamez MD Primary Care Provider Allergies Active Allergy Reactions Criticality Noted Date Comments Codeine Hives 11/27/2014 Morphine 11/27/2014 Medications DULoxetine (CYMBALTA) 20 MG capsule 0 10/13/2014 Active PLAQUENIL 200 mg tablet 0 10/28/2014 Active levothyroxine (SYNTHROID, LEVOTHROID) 88 MCG tablet 0 10/28/2014 Active methotrexate 2.5 MG tablet 0 10/28/2014 Active naproxen (NAPROSYN) 500 MG tablet 1 10/28/2014 Active omeprazole (PriLOSEC) 20 MG capsule 0 10/13/2014 Active acetaZOLAMIDE (DIAMOX) 125 MG tablet Take 125 mg by mouth 3 (three) times a day. Active Social History Tobacco Use Types Packs/Day Years Used Date Smoking Tobacco: Former Alcohol Use Standard Drinks/Week Comments Not Asked 0 (1 standard drink = 0.6 oz pur e alcohol) Comments No Sex and Gender Information Value Date Recorded Sex Assigned at Not on file Legal Sex Female 1:02 PM EDT Gender Identity Not on file Sexual Orientation Not on file Last Filed Vital Signs Vital Sign Reading Time Taken Comments Blood Pressure 116/76 11/27/2014 1:38 PM EDT Pulse 86 11/27/2014 1:38 PM EDT Temperature 36.6 ??C (97.9 ??F) 11/27/2014 1:38 PM ED T Respiratory Rate 12 11/27/2014 1:38 PM EDT Oxygen Saturation 98% 11/27/2014 1:38 PM EDT Inhaled Oxygen Concentration - - Weight - - Height - - Body Mass Index - - Plan of Treatment Health Maintenance Due Date Last Done Comments Colorectal Cancer: COLONOSCO PY Screening every 10 yrs (or Modifier) 1969 Depression: Screening Annual ly using PHQ-2/9 in Adults 18 yrs or above (or HM Modifier)([facility]) 1987 Hepatitis C Virus Infection in Adolescents and Adults: Screening (or Modifier) ([facility]) 1987 Human Immunodeficiency Virus (HIV) Infection: Screening Annually (or Modifier)([facility]) 1987 XIN Screening: Once using ST OP-BANG Questionnaire for Adults with Conditions or high BMI([facility]) 1987 SDOH Screening Reminder: Esthela binllshireen for all adults ([facility]) 1987 Tobacco Smoking Cessation: i n Adults excluding Women: Behavioral and Pharmacotherapy Interventions ([facility]) 1987 DTaP/Tdap/Td Vaccines ([facility]) (1 - Tdap) 1988 Cervical Cancer Screenin 1-65 yrs of age (or Modifier) 1990 Cervical Cancer Screening: P ap every 3 yrs pts age 21-65 1990 Cervical Cancer: Pap Screeni ng with Modifier timing ([facility]) 1990 Cervical Cancer: hrHPV alone or with cotesting Pap for Pts 30-65yrs screening every 5yrs ([facility]) 1990 Colorectal Cancer Screening 45 -75 Yrs (or HM Modifier ) 2014 Colorectal Cancer: FLEXIBLE SIGMOIDOSCOPY Screening every 5 yrs 2014 Colorectal Cancer: Fecal Imm unochemical Test (FIT) Annually [facility] 2014 Colorectal Cancer: High-sens itivity gFOBT Screening Annually [facility] 2014 Colorectal Cancer: Stool Col oguard Screening every 3 yrs 2014 Colorectal Cancer:CT Colonography Screening every 5 yr s 2014 Lipid Screening: Every 5 yrs for Women aged 45+ (or HM Modifier) ([facility]) 2015 Breast Cancer: Screening Esthela ually age 50-74 yrs (or HM Modifier)([facility]) 2019 Lung Cancer: Screening Annua lly in adults aged 50 to 80 years (or HM Modifiers)([facility]) 2019 Pneumococcal Vaccination Scr eening: Patients 50+ yrs of age ([facility]) (1 of 1 - PCV) 2019 Zoster/Shingles Vaccine Seri es Screening: Adults aged 18+ yrs (or HM Modifiers)([facility] ) (1 of 2) 2019 COVID-19 Vaccine Screening: Initial Series and Booster Status ([facility]) ( - 2023- season) 2023 Flu Vaccination: Yearly for ages 18mos through 64 years (or Modifier)([facility]) 11/06/2024 Medical Devices Not on file Insurance Care Teams Motorcoach Driver Relationship Specialty Start Date End Date Avis Gamez MD [address] [place] [address] PCP - General Family Medicine 11/27/14
--- OUTSIDE RECORDS SUMMARY | 2024-08-24 13:25 | XMS_ITS | Clinical Summary ---
Author Organization [facility] Address [address] [place] [address] Care Team Providers Care Proof Tester Name Role Phone Unavailable Primary Care Provider Unavailabl e Social History Tobacco Use Types Packs/Day Years Used Date Smoking Tobacco: Never Assessed Sex and Gender Information Value Date Recorded Sex Assigned at Not on file Gender Identity Not on file Sexual Orientation Not on file Plan of Treatment Health Maintenance Due Date Last Done Comments Hepatitis B Vaccines (1 of 3 - 3-dose series) 1969 Hepatitis C Screening 1969 COVID-19 Vaccine (#1) 1969 Depression Screening 1981 Preventative Health Evaluation 1987 DTap / Tdap / Td (1 - Tdap) 1988 Cervical Cancer Screening (Pap Smear) 1990 Colon Cancer Screening (Colonoscopy) 2014 Breast Cancer Screening (Mammogram) 2019 Shingrix-Zoster Vaccine (1 o f 2) 2019 Influenza Vaccine (#1) 2023 2, 02/13/2011 Pneumococcal Vaccine Aged Out 12/18/2016 No long er eligible based on patient's age to complete this topic RSV Ped < 20 months Aged Out No longe r eligible based on patient's age to complete this topic
--- OUTSIDE RECORDS SUMMARY | 2024-08-24 13:25 | XMS_ITS | Referral Summary ---
Author Organization [facility] Address [address] [place] [address] Care Team Providers Care Presales Engineer Name Role Phone William Huizar DO Primary Care Provider [phone] Encounters Date Type Department Care Team Description 07/12/[address] Internal Medicine [address] [place] [phone] William Huizar, 07/06/2024 myChart Message [address] Internal Medicine [address] [place] [phone] William Huizar, DO Extremely painfull left big toe swelling and reddness 07/06/2024 Patient Self-Triage [address] [address] Urgent Care, [facility] PhysicianMD 06/28/[address] Internal Medicine [address] [place] [phone] William Huizar, 06/17/2024 myChart Message [address] Internal Medicine [address] [place] [phone] William Huizar, DO Fu 06/11/2024 10:30 AM [facility] Telehealth [address] Internal Medicine [address] [place] [phone] Tami Ovalle PA Febrile illness, acute (Primary Dx); Acute non-recurrent sinusitis of other sinus 06/11/2024 Telephone [facility] [address] [facility] Internal Medicine [address] [place] [phone] William Huizar, Fever; URI from Last 3 Months Allergies Active Allergy Reactions Criticality Noted Date [...] dip negative, advised her to see her CAREER DEVELOPMENT ASSOCIATE for further evaluation. Elevated BP without diagnosis [...] office negative. Discussed following up with her CAREER DEVELOPMENT ASSOCIATE, she declines referral and will make an [...] up. Agrees to avoid alcohol while taking. CHROMIUM PLATER (ventriculoperitoneal) shunt status 8 High risk medication [...] 02/05/20142020 Skin lesion of face 02/05/2014 08/08/19 Acute pharyngitis 07/14/2013 05/17/2020 Dysuria 06/10/2013 05/17/2020 Acute lateral meniscal tear 04/24/2013 05/17/2020 Shortness of breath 01/13/2013 08/08/19 22 Prediabetes 09/12/2011 08/07/2021 Iron deficiency anemia goldie marquis to inadequate dietary iron intake 01/09/2011 2 Immunizations Immunization Administration Dates Next Due INFLUENZA, SPLIT VIRUS, TRIVALENT, PF 01/13/2013 Influenza, Trivalent, MDV, Injectable 03/26/2012 ,02/13/2011 Pneumococcal Polysaccharide Vaccine, 23 Valent 0 12/18/2016 Tetanus Toxoid, Reduced Diph theria Toxoid, and Acellular Pertussis Vaccine, Adsorbed 12/18/2016 Social History Tobacco Use Types Packs/Day Years Used Date Smoking Tobacco: Former Cigarettes Passive Smoke Exposure: Past Smokeless Tobacco: Never Tobacco Cessation:Counseling Given: Not Answered Comments:: Alcohol Use Standard Drinks/Week Comments No 0 (1 standard drink = 0.6 oz pur e alcohol) [facility] Utilities Answer Date Recorded In the past 12 months has e [employer], gas, oil, or water company threatened to shut off services in your [...] 02/26/2024 4:12 AM EST Plan of Treatment Not on file Medical Devices Implanted Type Area Farm Equipment Maintenance Supervisor Device Identifier Shelf Expiration Date Model / Serial / Lot Shunt-08/23/2016 Implanted:2016 by Heather Garcia MD (Quantity not on file) Shunt N/A: Scalp Medtronic [id number] / / Description:Medtronic Strata II Reprogrammable Valve Procedures * Due to [place] Endymed law, this organization might not be sharing [...] to Health Maintenance Results * Due to [place] Endymed law, this organization might not be sharing negative HIV tests. * Hepatitis C Antibody w/Reflex to HCV RNA, Quantitative PCR (12/12/2023 8:47 AM EDT) Hepatitis C Antibody Interpretation Nonreactive Nonreactive 12/12/2023 4:25 PM EDT [facility] Blood Structure of peripheral vein / Unknown Venipuncture / Unknown 12/12/2023 8:47 AM EDT 12/12/2023 8:48 AM EDT Chely Villanueva MD LAB BLOOD ORDERABLES Final Resu lt [facility] [address] [place] [address], [place] [phone] * [facility] Bilateral Diagnostic Digital Mammogram with Ronald (08/13/2023 [...] interpretation. Narrative 08/13/2023 9:16 AM EDT EXAMINATION: [facility] Bilateral Diagnostic Digital Mammogram with Ronald [place] [...] (10/04/2016 11:26 AM EDT) Path Procedure TPGAS ([id number]) 1 ?? HPVHR([id number]) 1 ?? Edited by: [id number] GUERLINE ?? [id number] - 1457 -SCRPT6 [facility] Specimen Labeled As: 1 CERVICAL/ENDOCERVI ASHLEY CYTO MATERIAL - Edited by: [id number] NEO [facility] Additional Test Information Specimens were tested for high risk HPV using the FDA approved Digene Hybrid ?? Capture II kit, in the Diagnostic Molecular Oncology Lab at [facility] ?? Health Care. ??This test can detect [...] abnormality. ??We endorse the recommendations of the [place] Society for ?? Colposcopy and Cervical Pathology [...] complexity clinical laboratory testing. ?? Edited by: [id number] - 1457 [id number] [facility] Diagnosis [...] test was examined in accordance with the [facility] Cytopathology ?? Laboratory written policy, which incorporates all CLIA mandates. Screening ?? guidelines can be found in Am J Clin Pathol 2012;137:516-542. ??We endorse the ?? practice guidelines developed by ASCCP and published in the Journal Lower ?? Genital Tract Disease 17(5):S1-S27 (2013). ? This Pap test was examined by the ThinPrep Imaging System, [employer], [place], [place]. ?- High risk HPV DNA subtypes: NEGATIVE ?? Edited by: [id number] - 1457 BW-[id number] ?? [id number] - 1036 [id number] [facility] Gynecologic Clinical Data Specimen source:, THINPREP (CERVICAL AND ENDOCERVICAL) [facility] Gynecologic Clinical Data Gynecologic findings:, POST MENOPAUSAL [facility] Pathology Codes Client Order Code:, TPHGS3 [facility] Pathology Codes Bill Type:, 3RD LIBERTARIAN BILLING [facility] Completed Report [id number] HPV, HIGH RISK TYPES 1 [facility] Marker 1 MDMONIK, NEGATIVE [facility] Marker 2 MSSIMIINGRIS [facility] Marker 3 NILM,NILM [facility] Marker 4 NTZ,NTZ [facility] Marker 5 RIM,RECEIVED IN MOLECULAR [facility] Marker 6 SWETHA MEDEIROS [facility] Cc Results To RADHA SAMAYOA ??[id number] ?? SANTOS Rascon D.O. REF ??[id number] [facility] Signature REPORT SIGNED: INEZ REN 10/16/16 [facility] Sign Out Audit INEZ REN [id number] FINAL [place] [id number] [facility] Cytology / Unknown 7 11:26 AM EDT 10/05/2016 11:26 AM EDT us Kisha Root MD LAB HISTORICAL RESULTS Final Res ult [facility] [address] [place] [address], [place] * CT Chest W Contrast (06/15/2014 [...] of the body of T9 Procedure Note Mayank Chavira P - 12/05/2016 EXAMINATION: Helical CT of [...] Most Recently Relevant to Health Maintenance Insurance Advance Directives Documents on File Type Date Recorded 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
--- NOTE | 2024-08-24 13:33 | HO.SPINEOV ---
Intake Visit Reasons: neck pain/left arm numbness after surgery Intake Note: Mrs. Mtz is here today c/o neck pain and left arm numbness after surgery. Recreation Coordinator Required: No Allergies codeine Allergy (Verified 08/26/23 14:16) Rash hydrocodone [From Vicodin] Allergy (Verified 08/26/23 14:16) Hallucinations hydromorphone [From Dilaudid] Allergy (Verified 08/26/23 14:16) Swelling morphine Allergy (Verified 08/26/23 14:16) Rash Assessment & Plan Assessment & Plan (1) Cervical myelopathy: Code(s): G95.9 - Disease of spinal cord, unspecified Category: Medical Plan Mrs Soares came back in the office today for follow-up. She underwent an ACDF C6-7 more than 5 years ago. At that time she had spinal cord compression and recovered nicely from the procedure. She noticed about 6 months ago she started to have numbness radiating down in her arm into her left hand with numbness of her thumb and index finger. She noticed her arm felt weak as well when she is trying to hold things. She came in today for evaluation as she is now also starting to get a discomfort and tingling down into the arm as well. I examined her and she does have good strength but she has hyperreflexia on the left side with Cerna's sign. I think she is probably dealing with another disc herniation above her fusion, I suspect at C5-6 given the dermatomal distribution. I am going to put her in for cervical MRI. She needs to be done at [facility] because she needs her shunt reprogrammed afterwards. I can call her with the results. I did warn her that her insurance company [employer] may deny the MRI secondary to not doing any physical therapy so I also gave her a referral for that, but in light of the myelopathic symptoms and physical exam finding I think they should just allow us to do the MRI. Total amount of time spent in this visit was 20 minutes in discussion of symptoms, old cervical imaging results and subsequent plan of care Byron Oviedo MD,PhD [facility] Orders: Orders MR cervical spine wo con Today G95.9 - Disease of spinal cord, unspecified PT Evaluation and Treatment Today G95.9 - Disease of spinal cord, unspecified Coding Level of Care Code Est Pt Level 3 (73610) Diagnoses Cervical myelopathy G95.9
== END 2024-08-24 15:03 | disposition home or self-care (01) ==
LOC: HO.HNS 13:21
PROVIDERS: Visit Provider Physician Assistant
DX: G95.9 Disease of spinal cord, unspecified (principal)
CPT/HCPCS: 99213